=== PATIENT | male | born 1980 | race Caucasian/White ===

== ENCOUNTER 2018-04-01 14:33 | Emergency (ER) | payer OTHER ==
[~2018-04-01] VITALS: Ht 180.3 cm; Wt 117.9 kg
--- NOTE | ~2018-04-01 | EKG ---
[facility] [place] [address] ELECTROCARDIOGRAM REPORT Name: LYNNROLANDO [facility] #: [facility]Charles#: [id number] Admission: 04/01/18 Attend Phys: Discharge: 04/01/18 Date of : 78 Report #: [id number] THIS REPORT FOR: //name// [facility] ED Test Date: 2018-04-01 Test Time: 14:49:20 Pat Name: ROLANDO BAILEY Department: Room: Gender: M [employer]: [place] : 1980 Requested By: Willa Hernandez Order Number: [id number] MD: Librado Rios Measurements Intervals [place] Rate: 71 P: 48 IN: 164 QRS: 20 QRSD: 103 T: 174 QT: 396 QTc: 431 Interpretive Statements Sinus rhythm Probable LVH with secondary repol abnrm Anterior ST elevation, probably due to LVH Baseline wander in lead(s) V2 No previous ECG available for comparison Electronically Signed On 04-03-2018 16:44:26 CDT by Librado Rios [email or web address] <ELECTRONICALLY SIGNED> By: Librado Rios MD 04/03/18 1644 [id number] 1449 Librado [email or web address] MD /SUNIL
[2018-04-01] MEDS ORDERED: AMLODIPINE BESY10 MG PO (15:32)
[2018-04-01] MEDS ORDERED: HYDRALAZINE 2525 MG PO (15:32)
[2018-04-01] MEDS ORDERED: CARVEDILOL25 MG PO (15:33)
[2018-04-01] MEDS ORDERED: CHLORTHALIDONE25 MG PO (15:33)
[2018-04-01] MEDS ORDERED: BENICAR40 MG PO (15:33)
[2018-04-01] MEDS ORDERED: CLONIDINE HCL0.2 M2 PO (15:33)
[2018-04-01] MEDS ORDERED: LASIX 40 MG TAB40 M2 PO (15:33)
[2018-04-01] MEDS ORDERED: ZOCOR20 MG PO (15:33)
[2018-04-01] MEDS ORDERED: SPIRONOLACTONE25 M1 PO (15:34)
[2018-04-01] MEDS ORDERED: GLUCOPHAGE XR500 MG PO (15:34)
[2018-04-01] MEDS ORDERED: CARDURA4 MG PO (15:34)
[2018-04-01 17:10] LABS: ABSOLUTE NEUTROPHILS 5.9 thou/uL (1.4-8.2); BASOPHILS 0.7 % (0.0-2.0); EOSINOPHILS 1.1 % (0.0-3.0); HEMATOCRIT 40.8 % (42.0-52.0); HEMOGLOBIN 13.6 gm/dL (14.0-18.0); LYMPHOCYTES 21.8 % (24.0-44.0); MCH 25.8 pg (26.0-34.0); MCHC 33.4 g/dL (28.0-37.0); MCV 77.4 fL (80.0-100.0); MONOCYTES 8.8 % (1.0-8.0); PLATELET COUNT 243 thou/uL (150-400); POLYS 67.6 % (36.0-66.0); RBC 5.28 mil/uL (4.50-6.00); RDW 15.2 % (10.5-14.5); WBC 8.8 thou/uL (4.0-11.0)
[2018-04-01 17:17] LABS: ANION GAP 8 mmol/L (7-16); BUN 27 mg/dL (7-18); CALCIUM 9.4 mg/dL (8.5-10.1); CHLORIDE 98 mmol/L (98-107); CO2 26 mmol/L (21-32); CREATININE 1.6 mg/dL (0.7-1.3); GLUCOSE 325 mg/dL (74-106); SODIUM 132 mmol/L (136-145)
[2018-04-01 17:18] LABS: POTASSIUM 4.3 mmol/L (3.5-5.1)
[2018-04-01 17:23] LABS: ALBUMIN 3.3 g/dL (3.4-5.0); DIRECT BILIRUBIN < 0.1 mg/dL (<0.1-0.3); LIPASE 181 U/L (73-393); SGOT 29 U/L (15-37); SGPT 25 U/L (30-65); TOTAL BILIRUBIN 0.4 mg/dL (<0.1-1.0); TOTAL PROTEIN 8.1 g/dL (6.4-8.2)
[2018-04-01] MEDS ORDERED: NORCO 5-325 TA1 EACH PO (18:38)
[2018-04-01] MEDS ORDERED: COLACE100 MG PO (18:39)
[2018-04-01 19:15] VITALS: BP 131/71
== END 2018-04-01 19:29 | disposition home or self-care (01) ==
LOC: ER 14:33
PROVIDERS: Emergency Medicine
DX: K29.70 Gastritis, unspecified, without bleeding (principal); E86.0 Dehydration; I10 Essential (primary) hypertension; E11.9 Type 2 diabetes mellitus without complications; E78.5 Hyperlipidemia, unspecified; Z79.899 Other long term (current) drug therapy